=== PATIENT | male | born 1970 | race Caucasian/White ===

== ENCOUNTER 2018-01-05 02:54 | Inpatient (IN) | payer BC ==
[2018-01-05 03:29] LABS: Absolute Lymphocytes (CBC) 0.9 K/uL (0.7-4.9); Absolute Monocytes 1.1 K/uL (0.1-1.3); Absolute Neutrophil 13.1 K/uL (1.8-8.0); Basophils % 0.1 % (0-1.3); Eosinophils % 0.2 % (0-4.4); Hematocrit 45.2 % (39.6-49.0); Lymphocytes % 5.7 % (15.3-44.8); MCH 29.9 pg (27.0-35.0); MCV 88.2 fL (80-100); MPV 7.7 fL (7.6-11.3); Monocytes % 7.3 % (3.3-12.3); RBC Red Blood Cell Count 5.12 M/uL (4.33-5.43)
[2018-01-05] MEDS ORDERED: MEPERIDINE HCL 25 MG/0.5 ML ONE (03:37)
[2018-01-05 03:53] LABS: Albumin 4.1 g/dL (3.4-5.0); Bilirubin Direct 0.2 mg/dL (0-0.2); Bilirubin Total 0.8 mg/dL (0.2-1.0); Protein, Total 7.8 g/dL (6.4-8.2)
[2018-01-05 04:06] LABS: Urine Bacteria <20 /HPF (NONE SEEN); Urine Culture Reflex Order NOT NEEDED; Urine RBC NONE SEEN /HPF (NONE SEEN)
[2018-01-05 04:07] LABS: Urine Amorphous Sediment 4+ /HPF (NONE SEEN); Urine Mucus SLIGHT /HPF (NONE SEEN)
[2018-01-05 04:56] LABS: Urine Blood NEGATIVE (NEG); Urine Glucose NEGATIVE (NEG); Urine Protein TRACE (NEG); Urine pH 7.5 (5.0-7.0)
--- NOTE | 2018-01-05 06:22 | EDPHYS ---
Physician Documentation [facility] Name: Jackson Becker Age: 47 yrs Sex: Male : 1970 Arrival Date: 01/05/2018 Time: 02:55 Bed 8 Private MD: ED Physician Woo Francis HPI: 01/05 03:37 This 47 yrs old Male presents to ER via Ambulatory with complaints of rn abdominal pain. 03:37 The patient presents with abdominal pain right lower quadrant. Onset: The rn symptoms/episode began/occurred yesterday. The symptoms do not radiate. Associated signs and symptoms: Pertinent negatives: nausea and vomiting, anorexia, blood in stools, chest pain, constipation, diarrhea, dysuria, fever, headache, hematuria, nausea, palpitations, shortness of breath, testicular pain, vomiting, vomiting blood. The symptoms are described as achy. Modifying factors: The symptoms are alleviated by nothing, the symptoms are aggravated by touching the area. Severity of pain: At its worst the pain was moderate in the emergency department the pain is unchanged. The patient has experienced a previous episode. Reports evaluated in past for similar symptoms, told was gas. . Historical: - Allergies: 03:12 Prednisone; bb - Home Meds: 03:12 None [Active]; bb - PMHx: 03:12 None; bb - PSHx: 03:12 Hernia repair; bb - Immunization history:: Adult Immunizations up to date. - Social history:: Smoking status: Patient uses tobacco products, chewing tobacco, Patient/guardian denies using alcohol, street drugs. - Ebola Screening: : No symptoms or risks identified at this time. - Family history:: not pertinent. - Hospitalizations: : No recent hospitalization is reported. ROS: 03:37 Constitutional: Negative for fever, chills, and weight loss, Eyes: Negative for injury, rn pain, redness, and discharge, Neck: Negative for injury, pain, and swelling, Cardiovascular: Negative for chest pain, palpitations, and edema, Respiratory: Negative for shortness of breath, cough, wheezing, and pleuritic chest pain, Abdomen/GI: Negative for nausea, vomiting, diarrhea, and constipation, Back: Negative for injury and pain, MS/Extremity: Negative for injury and deformity, Skin: Negative for injury, rash, and discoloration, Neuro: Negative for headache, weakness, numbness, tingling, and seizure. Exam: 03:37 Constitutional: This is a well developed, well nourished patient who is awake, alert, rn and in no acute distress. Head/Face: Normocephalic, atraumatic. Eyes: Pupils equal round and reactive to light, extra-ocular motions intact. Lids and lashes normal. Conjunctiva and sclera are non-icteric and not injected. Cornea within normal limits. Periorbital areas with no swelling, redness, or edema. ENT: MMM Abdomen/GI: soft, mild RLQ tenderness, no rebound, no masses Skin: Warm, dry with normal turgor. Normal color with no rashes, no lesions, and no evidence of cellulitis. MS/ Extremity: Pulses equal, no cyanosis. Neurovascular intact. Full, normal range of motion. Equal circumference. Neuro: Awake and alert, GCS 15, Normal gait. Vital Signs: 03:12 BP 116 / 82; Pulse 77; Resp 18 S; Temp 99.4(O); Pulse Ox 97% on R/A; Weight 104.33 kg bb (R); Height 5 ft. 8 in. (172.72 cm) (R); Pain 7/10; 03:48 BP 119 / 76; Pulse 70; Resp 16; Pulse Ox 97% on R/A; aa1 04:47 BP 111 / 70; Pulse 61; Resp 16; Pulse Ox 96% on R/A; aa1 05:40 BP 109 / 59; Pulse 68; Resp 16; Pulse Ox 97% on R/A; aa1 06:32 BP 101 / 73; Pulse 63; Resp 16; Temp 98.9; Pulse Ox 96% on R/A; Pain 0/10; aa1 03:12 Body Mass Index 34.97 (104.33 kg, 172.72 cm) bb MDM: 03:04 Patient medically screened. rn 06:21 Differential diagnosis: appendicitis, diverticulitis, Ureterolithiasis. Data reviewed: rn vital signs, nurses notes. 06:21 Counseling: I had a detailed discussion with the patient and/or guardian regarding: the rn historical points, exam findings, and any diagnostic results supporting the discharge/admit diagnosis, lab results, radiology results, the need for further work-up and treatment in the hospital. Response to treatment: the patient's symptoms have mildly improved after treatment, and as a result, I will admit patient. Admission orders: after a detailed discussion of the patient's condition and case, the admit orders are written by me. ED course: Pt with acute appendicitis, admitted to Dr. Byrnes, abx ordered, NPO.. 01/05 03:14 Order name: Basic Metabolic Panel; Complete Time: 04:15 rn 01/05 03:14 Order name: CBC with Diff; Complete Time: 04:15 rn 01/05 03:14 Order name: Hepatic Function; Complete Time: 04:15 rn 01/05 03:14 Order name: Lipase; Complete Time: 04:15 rn 01/05 03:14 Order name: Urine Microscopic Only; Complete Time: 04:15 rn 01/05 04:02 Order name: Urine Dipstick--Ancillary (enter results) ms 01/05 03:14 Order name: CT Abd/Pelvis - W/Contrast rn 01/05 04:02 Order name: Urine Dipstick-Ancillary; Complete Time: 06:21 EDMS 01/05 06:42 Order name: Type And Screen rn 01/05 07:37 Order name: Type and Screen EDMS 01/05 03:14 Order name: IV Saline Lock; Complete Time: 03:15 rn 01/05 03:14 Order name: Labs collected and sent; Complete Time: 03:15 rn 01/05 03:14 Order name: Urine Dipstick-Ancillary (obtain specimen); Complete Time: 03:46 rn 01/05 06:42 Order name: EKG; Complete Time: 06:42 rn 01/05 06:42 Order name: EKG - Nurse/Tech; Complete Time: 07:01 rn Administered Medications: 03:46 Drug: Demerol 25 mg Route: IVP; Site: right upper arm; aa1 04:41 Follow up: Response: No adverse reaction; Pain is decreased aa1 06:28 Drug: Flagyl 500 mg Volume: 100 ml; Route: IVPB; Rate: 200 ml/hr; Infused Over: 30 aa1 mins; Site: right antecubital; 07:10 Follow up: Response: No adverse reaction; IV Status: Completed infusion ph 06:30 Not Given (Other Intervention Used): Rocephin - (cefTRIAXone) 1 grams IVPB once over 30 aa1 mins; (mix in 50 mL NS) 06:30 Drug: Rocephin 1 grams Route: IV; Rate: calculated rate; Site: right antecubital; aa1 07:01 Follow up: IV Status: Completed infusion aa1 07:09 Drug: NS 0.9% 1000 ml Route: IV; Rate: 1000 ml; Site: right upper arm; ph 07:45 Follow up: Response: No adverse reaction; IV Status: Infusion continued upon admission ph Disposition: 01/05/18 06:22 Hospitalization ordered by Dewayne Byrnes for Inpatient Admission. Preliminary diagnosis is Acute appendicitis. - Bed requested for Telemetry/MedSurg (Inpatient). - Status is Inpatient Admission. sv - Condition is Stable. - Problem is new. - Symptoms have improved. UTI on Admission? No Signatures: Dispatcher [employer] EDMS Florencia Uribe RN PILY Dorota Culver RN RN aa1 Diandra Gudino RN PILY bb Woo Francis MD MD rn Hall, Patricia, RN RN ph Botello, Elizabeth eb Corrections: (The following items were deleted from the chart) 06:41 06:22 Hospitalization Ordered by Dewayne Byrnes MD for Inpatient Admission. Preliminary eb diagnosis is Acute appendicitis. Bed requested for Telemetry/MedSurg (Inpatient). Status is Inpatient Admission. Condition is Stable. Problem is new. Symptoms have improved. UTI on Admission? No. rn 06:57 06:41 01/05/2018 06:22 Hospitalization Ordered by Dewayne Byrnes MD for Inpatient eb Admission. Preliminary diagnosis is Acute appendicitis. Bed requested for Telemetry/MedSurg (Inpatient). Status is Inpatient Admission. Condition is Stable. Problem is new. Symptoms have improved. UTI on Admission? No. eb 07:59 06:57 01/05/2018 06:22 Hospitalization Ordered by Dewayne Byrnes MD for Inpatient sv Admission. Preliminary diagnosis is Acute appendicitis. Bed requested for Telemetry/MedSurg (Inpatient). Status is Inpatient Admission. Condition is Stable. Problem is new. Symptoms have improved. UTI on Admission? No. eb
--- NOTE | 2018-01-05 06:22 | ER ---
Nurse's Notes [facility] Name: Jackson Becker Age: 47 yrs Sex: Male : 1970 Arrival Date: 01/05/2018 Time: 02:55 Bed 8 Private MD: Diagnosis: Acute appendicitis Presentation: 01/05 03:09 Presenting complaint: Patient states: he is having abdominal pain since earlier tonight bb which started off as generalized pain but now has moved to his right lower quad, he has had low back pain for 2 weeks prior to this denies dysuria, vomiting, diarrhea, last BM was last night and was normal. Transition of care: patient was not received from another setting of care. Onset of symptoms was January 05, 2018. Risk Assessment: Do you want to hurt yourself or someone else? Patient reports no desire to harm self or others. Initial Sepsis Screen: Does the patient meet any 2 criteria? No. Patient's initial sepsis screen is negative. Does the patient have a suspected source of infection? No. Patient's initial sepsis screen is negative. Care prior to arrival: None. 03:09 Method Of Arrival: Ambulatory bb 03:09 Acuity: SHAWANDA 3 bb Historical: - Allergies: 03:12 Prednisone; bb - Home Meds: 03:12 None [Active]; bb - PMHx: 03:12 None; bb - PSHx: 03:12 Hernia repair; bb - Immunization history:: Adult Immunizations up to date. - Social history:: Smoking status: Patient uses tobacco products, chewing tobacco, Patient/guardian denies using alcohol, street drugs. - Ebola Screening: : No symptoms or risks identified at this time. - Family history:: not pertinent. - Hospitalizations: : No recent hospitalization is reported. Screenin:16 Abuse screen: Denies threats or abuse. Nutritional screening: No deficits noted. aa1 Tuberculosis screening: No symptoms or risk factors identified. Fall Risk None identified. Assessment: 03:16 General: Appears in no apparent distress. comfortable, Behavior is calm, cooperative, aa1 appropriate for age. Pain: Complains of pain in right lower quadrant Quality of pain is described as stabbing, Pain began 1600 yesterday Is continuous. Neuro: Level of Consciousness is awake, alert, obeys commands, Oriented to person, place, time, situation, Moves all extremities. Full function Gait is steady. Cardiovascular: Heart tones S1 S2 present Rhythm is regular. Respiratory: Airway is patent Respiratory effort is even, unlabored, Respiratory pattern is regular, symmetrical. GI: Abdomen is non-distended, Bowel sounds present X 4 quads. Abd is soft X 4 quads Abdomen is tender to palpation in right lower quadrant Reports lower abdominal pain, Patient currently denies constipation, diarrhea, nausea, vomiting. : No signs and/or symptoms were reported regarding the genitourinary system. EENT: No signs and/or symptoms were reported regarding the EENT system. Derm: Skin is intact, is healthy with good turgor, Skin is pink, warm \T\ dry. Musculoskeletal: Circulation, motion, and sensation intact. Capillary refill < 3 seconds. 04:47 Reassessment: Patient appears in no apparent distress at this time. Patient and/or aa1 family updated on plan of care and expected duration. Pain level reassessed. Patient is alert, oriented x 3, equal unlabored respirations, skin warm/dry/pink. Awaiting CT scan. 05:45 Reassessment: Patient appears in no apparent distress at this time. Patient and/or aa1 family updated on plan of care and expected duration. Pain level reassessed. Patient is alert, oriented x 3, equal unlabored respirations, skin warm/dry/pink. Awaiting CT results. 06:32 Reassessment: Patient appears in no apparent distress at this time. Patient and/or aa1 family updated on plan of care and expected duration. Pain level reassessed. Patient is alert, oriented x 3, equal unlabored respirations, skin warm/dry/pink. Pt to be admitted for acute appendicitis. 07:35 Reassessment: Patient appears in no apparent distress at this time. Patient and/or ph family updated on plan of care and expected duration. Pain level reassessed. Patient is alert, oriented x 3, equal unlabored respirations, skin warm/dry/pink. OR nurse at bedside, preparing to take pt to surgery. Vital Signs: 03:12 BP 116 / 82; Pulse 77; Resp 18 S; Temp 99.4(O); Pulse Ox 97% on R/A; Weight 104.33 kg bb (R); Height 5 ft. 8 in. (172.72 cm) (R); Pain 7/10; 03:48 BP 119 / 76; Pulse 70; Resp 16; Pulse Ox 97% on R/A; aa1 04:47 BP 111 / 70; Pulse 61; Resp 16; Pulse Ox 96% on R/A; aa1 05:40 BP 109 / 59; Pulse 68; Resp 16; Pulse Ox 97% on R/A; aa1 06:32 BP 101 / 73; Pulse 63; Resp 16; Temp 98.9; Pulse Ox 96% on R/A; Pain 0/10; aa1 03:12 Body Mass Index 34.97 (104.33 kg, 172.72 cm) bb ED Course: 02:55 Patient arrived in ED. es 03:04 Woo Francis MD is Attending Physician. rn 03:11 Triage completed. bb 03:12 Arm band placed on Patient placed in an exam room, on a stretcher, on pulse oximetry. bb 03:15 Dorota Culver, PILY is Primary Nurse. aa1 03:16 Patient has correct armband on for positive identification. Placed in gown. Bed in low aa1 position. Call light in reach. Pulse ox on. NIBP on. Warm blanket given. 03:16 Initial lab(s) drawn, by ma, sent to lab. Inserted saline lock: 20 gauge in right upper aa1 arm, using aseptic technique. Blood collected. 03:48 Urine collected: clean catch specimen, clear. aa1 05:[address] via wheelchair. kw1 05:23 CT Abd/Pelvis - W/Contrast In Process Unspecified. EDMS 05:24 CT completed. Patient tolerated procedure well. Patient moved back from CT. kw1 06:22 Dewayne Byrnes MD is Hospitalizing Provider. rn 06:33 No provider procedures requiring assistance completed. Patient admitted, IV remains in aa1 place. 07:02 Report given to Moisés Uribe RN \T\ Jt Phillip, PILY. aa1 07:08 Allison Phillip, RN is Primary Nurse. ph Administered Medications: 03:46 Drug: Demerol 25 mg Route: IVP; Site: right upper arm; aa1 04:41 Follow up: Response: No adverse reaction; Pain is decreased aa1 06:28 Drug: Flagyl 500 mg Volume: 100 ml; Route: IVPB; Rate: 200 ml/hr; Infused Over: 30 aa1 mins; Site: right antecubital; 07:10 Follow up: Response: No adverse reaction; IV Status: Completed infusion ph 06:30 Not Given (Other Intervention Used): Rocephin - (cefTRIAXone) 1 grams IVPB once over 30 aa1 mins; (mix in 50 mL NS) 06:30 Drug: Rocephin 1 grams Route: IV; Rate: calculated rate; Site: right antecubital; aa1 07:01 Follow up: IV Status: Completed infusion aa1 07:09 Drug: NS 0.9% 1000 ml Route: IV; Rate: 1000 ml; Site: right upper arm; ph 07:45 Follow up: Response: No adverse reaction; IV Status: Infusion continued upon admission ph Outcome: 06:22 Decision to Hospitalize by Provider. rn 07:37 Admitted to OR accompanied by nurse, family with patient, via stretcher, with chart. ph 07:37 Condition: stable 07:37 Instructed on the need for admit. 07:59 Patient left the ED. sv Signatures: Dispatcher [employer] Florencia Omer RN RN sv Dorota Culver RN RN aa1 Luana Blanca Brenda, RN RN Woo Leyva MD MD rn Hall, Patricia, RN RN Charisse Howell kw1
[2018-01-05] MEDS ORDERED: CEFTRIAXONE/SWI 1gm 1 GM/10 ML SYR ONE (06:25)
[2018-01-05] MEDS ORDERED: METRONIDAZOLE 500mg IVPB 500 MG/100 ML BAG IV ONE (06:25)
[2018-01-05] MEDS ORDERED: BUPIVACAINE 0.5% PF 10 ML VIAL ONE (07:26)
[2018-01-05] MEDS ORDERED: PROPOFOL 200 MG/20 ML VIAL IV ONE (07:45)
[2018-01-05] MEDS ORDERED: GLYCOPYRROLATE 0.2 MG/ML SYR ONE ×2 (07:46)
[2018-01-05] MEDS ORDERED: MIDAZOLAM HCL 2 MG/2 ML INJ ONE (07:46)
[2018-01-05] MEDS ORDERED: FENTANYL CITR 100 MCG/2 ML ONE (07:46)
[2018-01-05] MEDS ORDERED: ROCURONIUM 50 MG/5 ML VIAL IV ONE (07:47)
[2018-01-05] MEDS ORDERED: MORPHINE 10 MG/ML VIAL ONE (07:47)
[2018-01-05] MEDS ORDERED: KETOROLAC 30 MG/ML INJ ONE (07:47)
[2018-01-05] MEDS ORDERED: LIDOCAINE 2% MPF 5 ML VIAL ONE (07:47)
[2018-01-05] MEDS ORDERED: NEOSTIGMINE 1 MG/ML -5 ML SYRINGE ONE (07:47)
[2018-01-05] MEDS ORDERED: ONDANSETRON HCL 40 MG/20 ML VIAL ONE (07:51)
[2018-01-05] MEDS ORDERED: Ringers Lactate 1,000 ML IV ONE (08:00)
[2018-01-05] MEDS ORDERED: ONDANSETRON 4 MG/2 ML VIAL IV PRN ×2 (09:03→09:23)
[2018-01-05] MEDS ORDERED: MORPHINE 4 MG/ML SYR IV PRN (09:03)
--- NOTE | 2018-01-05 09:04 | P.OP ---
Preoperative diagnosis: Acute Appy Postoperative diagnosis: same Primary procedure: Lap Appy Anesthesia: gen Estimated blood loss: min Specimen: appy Findings: as above Complications: None Transferred to: Recovery Room Condition: Good
[2018-01-05] MEDS ORDERED: CEFOXITIN/SWI 1gm 1 GM/10 ML SYR IVP SCH ×2 (09:15→11:00)
[2018-01-05] MEDS ORDERED: HYDROCODONE/APAP 7.5/325 MG TAB PO PRN (09:23)
--- NOTE | 2018-01-05 09:27 | RAD REPORT ---
EXAM DESCRIPTION: CT - Abdomen Pelvis W Contrast - 01/05/2018 6:39 am CLINICAL HISTORY: Abdominal pain. Right lower quadrant pain COMPARISON: None. TECHNIQUE: Computed axial tomography of the abdomen and pelvis was obtained. 100 cc Isovue-300 is ad ministered intravenously. Oral contrast was given. A preliminary report was generated by [employer] and reviewed prior to this dictation All CT scans are performed using dose optimization technique as appropriate and may include automated exposure control or mA/KV adjustment according to patient size. FINDINGS: The liver has a diminished attenuation cyst with fatty infiltration The Spleen, pancreas, adrenals and kidneys appear unremarkable. The appendix is thickened. Moderate stranding is present within the adjacent fat with minimal ill-def ined fluid. An abscess is not seen. Pneumoperitoneum is not noted. There is no evidence of diverticulitis IMPRESSION: Appendicitis
--- NOTE | 2018-01-05 09:28 | EKG ---
Test Date: 2018-01-05 Test Time: 06:58:45 [employer] Driver: ZORA MEASUREMENT RESULTS: Intervals: Rate: 64 IL: 172 QRSD: 80 QT: 396 QTc: 408 [place]: P: 55 [place]: 172 QRS: -21 T: 16 INTERPRETIVE STATEMENTS: Normal sinus rhythm Low voltage QRS Cannot rule out Anterior infarct, age undetermined Abnormal ECG No previous ECG available for comparison Electronically Signed On 01-05-18 09:27:10 CDT by Jonny Contreras
[2018-01-05 09:43] VITALS: BP 97/48; TEMP 98.8
[2018-01-05 10:26] VITALS: BMI 34.9
[2018-01-05] MEDS: D5 0.45 NS 1,000 ML IV SCH ×2 (10:37→16:56)
[2018-01-05] MEDS: CEFOXITIN/SWI 1gm 1 GM/10 ML SYR IVP SCH ×2 (10:57→17:51)
[2018-01-05 11:18] VITALS: O2SAT 92
--- NOTE | 2018-01-05 12:46 | PREOPHP ---
Date of Admission: 01/05/2018 Chief Complaint: Abdominal pain. History Of Present Illness: The patient is a 47-year-old gentleman, who comes in with 1-day history of epigastric pain localizing to the right lower quadrant, associated with low-grade fevers. No naus ea, vomiting, diarrhea, constipation, blood in his stool. No dysuria or hematuria. No sore throat, runny nose, cough, headaches, or dizziness. No chest pain. No anorexia. Review of Systems: Otherwise unremarkable. Past Medical History: Negative. Past Surgical History: Negative. Allergies: INCLUDE PREDNISONE. Social History: The patient does not smoke. Dips occasionally. Does not drink. Family History: Significant for father with lung cancer. Physical Examination: Vital Signs: Stable. He is afebrile currently. General: He is awake, alert, orient x3. Head and neck: Cranial nerves 2 through 12 are grossly within normal limits. No neck masses. No JV D. Throat clear. Neck is supple. Chest: Clear. Heart: S1, S2. Abdomen: Soft, nondistended. Positive bowel sounds. Positive right lower quadrant tenderness with rebound. No rigidity or guarding. Extremities: Adequately perfused. Nontender. Neuro: Nonfocal. Laboratory Data: [place] [id number] with a left shift[address] CT of the abdomen and pelvis is consistent with acute appendicitis, uncomplicated. Assessment: Acute appendicitis. Plan: Admit n.p.o., IV fluid, IV antibiotic, to the OR for lap appy possible open. The patient unde rstands the risks, benefits, and alternatives and agrees to procedure. ZHANNA/KINGA Voice ID: [id number]
[2018-01-05] MEDS ORDERED: METRONIDAZOLE 500mg IVPB 500 MG/100 ML BAG IV SCH (17:00)
--- NOTE | 2018-01-05 21:48 | OP ---
Date of Procedure: 01/05/2018 Surgeon: Dewayne Byrnes MD Preoperative Diagnosis: Acute appendicitis. Postoperative Diagnosis: Acute appendicitis. Procedure: Laparoscopic appendectomy. Estimated Blood Loss: Minimal. Specimen: Appendix. Findings: As above. Anesthesia: General. Complications: None. Disposition: The patient tolerated the procedure in stable condition and taken to the Recovery in go od general condition. Procedure In Detail: The patient was brought to the OR and placed in supine position. General anest hesia was begun. The patient was prepped and draped in usual sterile fashion. Marcaine 0.5% was infi ltrated locally. A 15-blade was used to make a 1 cm supraumbilical midline incision. Subcutaneous t issue divided. The fascia was identified and divided. A #1 Vicryl stay suture was placed. Peritone al cavity was entered with blunt dissection. A 12-mm trocar was placed into the peritoneal cavity un jermaine direct vision. Pneumoperitoneum was established. Then two 5-mm trocars were placed, 1 in the barton prapubic region and 1 in the left lower quadrant. Laparoscopy revealed acute suppurative appendiciti s in the right lower quadrant. The base of the appendix and mesoappendix were clearly identified. E ndo-BECKIE stapling device was used sequentially to divide both structures. Appendix retrieved through the umbilicus via an EndoCatch bag. Right lower quadrant irrigated. Effluent was clear. No evidenc e of bleeding or bowel injury appreciated. No other evidence of disease identified. Then all trocar s were removed under direct vision. Stay sutures were tied to each other to reapproximate the fascia l defect. Subcutaneous wounds were irrigated. Bleeding controlled with cautery. A 3-0 chromic used for subcutaneous tissue and rocío were used to close the skin. Sterile dressing was applied. The patient was awakened and taken to Recovery in good general condition. Discharge Note: The patient will go to the floor and will be monitored for several hours and once he is tolerating diet and ambulating, pain controlled on p.o. pain medication and afebrile, the patient will be discharged to home. Disposition: Home. Condition: Stable. Discharge Instructions: Resume home medications and diet. Activity as tolerated. No heavy lifting. Remove outer dressing and shower. Keep wound clean and dry. Followup in my office in 1 week. Garo porras for appointment. Tylenol No. 3 one tablet p.o. q.4. p.r.n. pain, Cipro 500 mg p.o. q.12. ZHANNA/KINGA Voice ID: [id number] Report ID: [id number]
== END 2018-01-05 18:11 | disposition home or self-care (01) | DRG 343 ==
LOC: ER 02:54 → ERHOLD 06:24 → 4TH 09:41
PROVIDERS: ADMIT Surgery; ATTEND Surgery
PROC: 0DTJ4ZZ Resection of Appendix, Percutaneous Endoscopic Approach (ICD-10-PCS; principal; 2018-01-05 08:00)
DX: K35.80 Unspecified acute appendicitis (principal); E66.9 Obesity, unspecified; F17.220 Nicotine dependence, chewing tobacco, uncomplicated; Z88.8 Allergy status to other drugs, medicaments and biological substances; Z68.34 Body mass index [BMI] 34.0-34.9, adult
CPT/HCPCS: 36415; 74177; 80048; 80076; 81003; 81015; 83690; 85025; 86850; 86900; 86901; 88304; 93005; 96361; 96365; 96375; 99285; J0696; J2175; J2250; J2405; J2710; J3010; Q9967